=== PATIENT | female | born 2000 | race Hispanic/Latino ===

== ENCOUNTER 2018-01-24 02:21 | Emergency (ER) | payer OTHER ==
--- NOTE | 2018-01-24 03:12 | EDPHYS ---
Physician Documentation [facility] Name: Yuli Salazar Age: 17 yrs Sex: Female : 2000 Arrival Date: 01/24/2018 Time: 02:22 Bed 6 Private MD: ED Physician Benoit Loaiza HPI: 01/24 03:13 This 17 yrs old Female presents to ER via Ambulatory with complaints of Pain kdr With Urination, Abdominal Cramping. 03:14 The patient presents with urinary symptoms, dysuria, frequency, urgency. Onset: The kdr symptoms/episode began/occurred today. Modifying factors: The symptoms are alleviated by nothing, the symptoms are aggravated by nothing. urinating. Associated signs and symptoms: The patient has no apparent associated signs or symptoms. Severity of symptoms: At their worst the symptoms were mild, moderate, just prior to arrival, in the emergency department the symptoms are unchanged. The patient has experienced similar episodes in the past, a few times. The patient has been recently seen by a physician: The patient is post for one week. 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 - Social history:: Smoking status: Patient/guardian denies using tobacco. - Ebola Screening: : No symptoms or risks identified at this time. ROS: 03:14 Positive for urinary symptoms, burning with urination, difficulty urinating, kdr Negative for pelvic pain, flank pain. 03:14 Constitutional: Negative for fever, chills, and weight loss, Eyes: Negative for injury, pain, redness, and discharge, Neck: Negative for injury, pain, and swelling, Cardiovascular: Negative for chest pain, palpitations, and edema, Respiratory: Negative for shortness of breath, cough, wheezing, and pleuritic chest pain, Abdomen/GI: Negative for abdominal pain, nausea, vomiting, diarrhea, and constipation, Back: Negative for injury and pain, MS/Extremity: Negative for injury and deformity, Skin: Negative for injury, rash, and discoloration, Neuro: Negative for headache, weakness, numbness, tingling, and seizure activity. Exam: 03:14 Constitutional: This is a well developed, well nourished patient who is awake, alert, kdr and in no acute distress. Head/Face: Normocephalic, atraumatic. Eyes: Pupils equal round and reactive to light, extra-ocular motions intact. Lids and lashes normal. Conjunctiva and sclera are non-icteric and not injected. Cornea within normal limits. Periorbital areas with no swelling, redness, or edema. Neck: Trachea midline, no thyromegaly or masses palpated, and no cervical lymphadenopathy. Supple, full range of motion without nuchal rigidity, or vertebral point tenderness. No Meningismus. Chest/axilla: Normal chest wall appearance and motion. Nontender with no deformity. No lesions are appreciated. Cardiovascular: Regular rate and rhythm with a normal S1 and S2. No gallops, murmurs, or rubs. Normal PMI, no JVD. No pulse deficits. Respiratory: Lungs have equal breath sounds bilaterally, clear to auscultation and percussion. No rales, rhonchi or wheezes noted. No increased work of breathing, no retractions or nasal flaring. Abdomen/GI: Soft, non-tender, with normal bowel sounds. No distension or tympany. No guarding or rebound. No evidence of tenderness throughout. Back: No spinal tenderness. No costovertebral tenderness. Full range of motion. Skin: Warm, dry with normal turgor. Normal color with no rashes, no lesions, and no evidence of cellulitis. MS/ Extremity: Pulses equal, no cyanosis. Neurovascular intact. Full, normal range of motion. Neuro: Awake and alert, GCS 15, oriented to person, place, time, and situation. Cranial nerves II-XII grossly intact. Motor strength 5/5 in all extremities. Sensory grossly intact. Cerebellar exam normal. Normal gait. Psych: Awake, alert, with orientation to person, place and time. Behavior, mood, and affect are within normal limits. Vital Signs: 02:30 BP 114 / 95; Pulse 90; Resp 18; Temp 97.2(O); Pulse Ox 100% on R/A; Weight 58.51 kg; tl2 Height 5 ft. 2 in. (157.48 cm); Pain 9/10; 02:30 Body Mass Index 23.59 (58.51 kg, 157.48 cm) tl2 MDM: 03:12 Patient medically screened. kdr 03:14 Data reviewed: vital signs, nurses notes, lab test result(s). Counseling: I had a kdr detailed discussion with the patient and/or guardian regarding: the historical points, exam findings, and any diagnostic results supporting the discharge/admit diagnosis, lab results, the need for outpatient follow up. Special discussion: I discussed with the patient/guardian in detail that at this point there is no indication for admission to the hospital. It is understood, however, that if the symptoms persist or worsen the patient needs to return immediately for re-evaluation. 01/24 02:43 Order name: Urine Dipstick--Ancillary (enter results) [facility] 01/24 02:43 Order name: Urine --Ancillary (enter results) [facility] 01/24 02:56 Order name: Urine Microscopic Only bb Administered Medications: 03:20 Drug: Bactrim (160 mg-800 mg (DS) 1 tablet Route: PO; tl2 03:24 Follow up: Response: No adverse reaction; Medication administered at discharge. tl2 03:20 Drug: Pyridium 200 mg Route: PO; tl2 03:24 Follow up: Response: No adverse reaction; Medication administered at discharge. tl2 Disposition: 01/24/18 03:12 Discharged to Home. Impression: Urinary tract infection, site not specified. - Condition is Stable. - Discharge Instructions: Urinary Tract Infection, [id number]. - Prescriptions for Pyridium 200 mg Oral Tablet - take 1 tablet by ORAL route every 8 hours for 3 days; 9 tablet. Bactrim DS 800- 160 mg Oral Tablet - take 1 tablet by ORAL route every 12 hours for 7 days; 14 tablet. - Medication Reconciliation Form, Thank You Letter, Antibiotic Education form. - Follow up: Private Physician; When: 2 - 3 days; Reason: If symptoms return, Further diagnostic work-up, Recheck today's complaints, Continuance of care, Re-evaluation by your physician. - Problem is new. - Symptoms have improved. Signatures: Dispatcher [employer] EDBenoit Blanco MD MD kdr Knox, Taylor, RN RN tl2 Corrections: (The following items were deleted from the chart) 03:24 03:12 01/24/2018 03:12 Discharged to Home. Impression: Urinary tract infection, site tl2 not specified. Condition is Stable. Forms are Medication Reconciliation Form, Thank You Letter, Antibiotic Education, Prescription Opioid Use. Follow up: Private Physician; When: 2 - 3 days; Reason: If symptoms return, Further diagnostic work-up, Recheck today's complaints, Continuance of care, Re-evaluation by your physician. Problem is new. Symptoms have improved. kdr
--- NOTE | 2018-01-24 03:12 | ER ---
Nurse's Notes [facility] Name: Yuli Salazar Age: 17 yrs Sex: Female : 2000 Arrival Date: 01/24/2018 Time: 02:22 Bed 6 Private MD: Diagnosis: Urinary tract infection, site not specified Presentation: 01/24 02:28 Presenting complaint: Patient states: Pt reports urinary frequency and dysuria since tl2 this afternoon. Denies N/V. Pt states it feels like a bladder infection. Transition of care: patient was not received from another setting of care. Onset of symptoms was January 23, 2018 at 12:00. Risk Assessment: Do you want to hurt yourself or someone else? Patient reports no desire to harm self or others. Initial Sepsis Screen: Does the patient meet any 2 criteria? No. Patient's initial sepsis screen is negative. Does the patient have a suspected source of infection? No. Patient's initial sepsis screen is negative. Care prior to arrival: None. 02:28 Method Of Arrival: Ambulatory tl2 02:28 Acuity: LISA 3 tl2 Triage Assessment: 02:30 General: Appears in no apparent distress. uncomfortable, Behavior is calm, cooperative, tl2 appropriate for age. Pain: Complains of pain in suprapubic area Pain does not radiate. Neuro: Level of Consciousness is awake, alert, obeys commands, Oriented to person, place, time, situation. Cardiovascular: Denies chest pain. Respiratory: Airway is patent Respiratory effort is even, unlabored, Respiratory pattern is regular, symmetrical. GI: Patient currently denies nausea, vomiting. : Reports burning with urination, urgency, urinary frequency. Derm: Skin is pink, warm \T\ dry. 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 - Social history:: Smoking status: Patient/guardian denies using tobacco. - Ebola Screening: : No symptoms or risks identified at this time. Screenin:31 Abuse screen: Denies threats or abuse. Nutritional screening: No deficits noted. tl2 Tuberculosis screening: No symptoms or risk factors identified. Fall Risk None identified. Assessment: 02:31 General: see triage assessment. tl2 03:20 Reassessment: Patient appears in no apparent distress at this time. Patient and/or tl2 family updated on plan of care and expected duration. Pain level reassessed. Patient is alert, oriented x 3, equal unlabored respirations, skin warm/dry/pink. Pt verbalized understanding of discharge instructions, need for follow up, and prescription usage. Vital Signs: 02:30 BP 114 / 95; Pulse 90; Resp 18; Temp 97.2(O); Pulse Ox 100% on R/A; Weight 58.51 kg; tl2 Height 5 ft. 2 in. (157.48 cm); Pain 9/10; 02:30 Body Mass Index 23.59 (58.51 kg, 157.48 cm) tl2 ED Course: 02:22 Patient arrived in ED. am2 02:26 Benoit Loaiza MD is Attending Physician. kdr 02:28 Magali Figueroa RN is Primary Nurse. tl2 02:29 Triage completed. tl2 02:30 Arm band placed on right wrist. tl2 02:31 Patient has correct armband on for positive identification. Bed in low position. Call tl2 light in reach. Side rails up X 1. Adult w/ patient. 03:20 No provider procedures requiring assistance completed. Patient did not have IV access tl2 during this emergency room visit. Administered Medications: 03:20 Drug: Bactrim (160 mg-800 mg (DS) 1 tablet Route: PO; tl2 03:24 Follow up: Response: No adverse reaction; Medication administered at discharge. tl2 03:20 Drug: Pyridium 200 mg Route: PO; tl2 03:24 Follow up: Response: No adverse reaction; Medication administered at discharge. tl2 Outcome: 03:12 Discharge ordered by . kdr 03:20 Discharged to home ambulatory, with family. tl2 03:20 Condition: stable 03:20 Discharge instructions given to patient, family, Instructed on discharge instructions, follow up and referral plans. medication usage, Demonstrated understanding of instructions, follow-up care, medications, Prescriptions given X 2. 03:24 Patient left the ED. tl2 Addendum: 01/27/2018 07:23 Addendum: Culture Results: Positive urine culture. No further action required. Bacteria s s sensitive to prescribed antibiotic. Signatures: Benoit Loaiza MD MD kdr Selma Power RN RN ss Magali Figueroa RN RN tl2 [place] Dejesus
[2018-01-24] MEDS ORDERED: SMZ./TMP. 800/160 MG TABLET ONE (03:18)
[2018-01-24] MEDS ORDERED: PHENAZOPYRIDINE 100MG TAB PO ONE (03:23)
[2018-01-24 03:28] LABS: Urine RBC >50 /HPF (NONE SEEN)
[2018-01-24 03:29] LABS: Urine Bacteria <20 /HPF (<20); Urine Culture Reflex Order REFLEXED
[2018-01-24 03:49] LABS: Urine Blood 2+ (NEG); Urine Glucose NEGATIVE (NEG); Urine Protein 3+ (NEG); Urine Specific Gravity >1.030 (1.005-1.030)
== END 2018-01-24 03:24 | disposition home or self-care (01) ==
LOC: ER 02:21
DX: N39.0 Urinary tract infection, site not specified (principal); Z88.0 Allergy status to penicillin
CPT/HCPCS: 81003; 81015; 81025; 87077; 87086; 87088; 87186; 99283